=== PATIENT | female | born 1975 | race Caucasian/White ===

== ENCOUNTER → 2017-03-28 | Outpatient (CLI) | payer OTHER ==
[2005-12-16 21:00] VITALS: TEMP 98.1
== END ==
LOC: MC.RAD 09:28
DX: Z12.31 Encounter for screening mammogram for malignant neoplasm of breast (principal); N63 Unspecified lump in breast

== ENCOUNTER → 2017-03-30 | Outpatient (CLI) | payer OTHER ==
[2005-12-16 21:00] VITALS: TEMP 98.1
== END ==
LOC: MC.RAD 13:27
DX: N60.01 Solitary cyst of right breast (principal); N63 Unspecified lump in breast

== ENCOUNTER → 2017-09-12 | Outpatient (CLI) | payer OTHER | LOC: MC.RAD 13:00 | DX: R92.8 Other abnormal and inconclusive findings on diagnostic imaging of breast (principal) ==